=== PATIENT | female | born 1985 | race Caucasian/White ===

== ENCOUNTER 2017-12-09 18:09 | Emergency (ER) | END 2017-12-09 20:47 | disposition home or self-care (01) ==

== ENCOUNTER → 2018-01-25 | Outpatient (CLI) | payer OTHER ==
[~2018-01-25] MED LIST: ALBU90OI INH; ALBU90OI6 INH; AMOCLA500 PO; AMOCLA875 PO; AMOX500 PO; Augmentin 875-1 EACH PO; BCP'S; CEFD300 PO; CETI10 PO; CIPR250 PO; CIPR500 PO; CLIN300 PO; CRUTCH4 USE; CYCL10 PO; DIPH50; DOXY100 PO; GABA600 PO; HYDACE10B PO; HYDACE5 PO; HYDGUAL120 PO; HYDHOMSY PO; HYDR1TAB94 PO; IBUP200; IBUP600 PO; IBUP800 PO; IPRA.06NI; LEVFLO500 PO; METPRE4DP PO; METR500 PO; MONT10T PO; MULVITMINE; MULVITMINE PO; Mucinex600 MG PO; NAPR500; NAPR500 PO; NAPR550 PO; NITR100CA PO; ONDA4ODT MM; OXYACE5T PO; PANT20 PO; PHENA100 PO; PHENA200 PO; POTCHL20ER PO; PREN-16 PO; PROACE100 PO; PRODEXEL PO; PROM25 PO; PROM25S PR; PROM6.25SY PO; PSEU120ER PO; Prednisone20 MG PO; RXHYDACE PO; RXNAPNA550 PO; RXOXYACE PO; RXPHEN200 PO; RXPROACE PO; RXSULTRIDS PO; SEASONIQUE; SULTRIDS PO; TRAM50 PO; Ultram50 MG PO; VALA500 PO; Zithromax250 MG PO; Zofran Odt4 MG PO; [UNRECOGNIZED DRUG - OTHER]
== END ==
LOC: LAB EV 12:03 → LAB SHORT 12:03
DX: N39.0 Urinary tract infection, site not specified (principal)
CPT/HCPCS: 87077; 87086; 87186

== ENCOUNTER → 2018-05-28 | Outpatient (CLI) | payer OTHER ==
[2018-05-29 14:10] LABS: HPV 16 Negative (Negative); HPV 18 Negative (Negative); HPV OTHER HR TYPES Positive (Negative)
== END ==
LOC: LAB 09:30 → LAB SHORT 09:30
PROVIDERS: Registered Nurse Community Health
DX: Z12.4 Encounter for screening for malignant neoplasm of cervix (principal)
CPT/HCPCS: 87624; G0123

== ENCOUNTER → 2019-06-07 | Outpatient (CLI) | payer OTHER ==
[2019-06-07 14:59] LABS: BASOPHILS ABSOLUTE AUTO 0.02 K/mm3 (0.00-0.23); BASOPHILS PERCENT AUTO 0 % (0-2); EOSINOPHILS ABSOLUTE AUTO 0.12 K/mm3 (0.00-0.68); EOSINOPHILS PERCENT AUTO 2 % (0-6); Hematocrit 42.9 % (33.0-51.0); Hemoglobin 13.7 g/dL (11.5-16.0); IMMATURE GRAN ABSOLUTE AUTO 0.02 K/mm3 (0.00-0.10); IMMATURE GRAN PERCENT AUTO 0 % (0-1); LYMPHOCYTES ABSOLUTE AUTO 1.92 K/mm3 (0.84-5.20); LYMPHOCYTES PERCENT AUTO 28 % (21-46); MONOCYTES ABSOLUTE AUTO 0.51 K/mm3 (0.16-1.47); MONOCYTES PERCENT AUTO 7 % (4-13); Mean Corpuscular HGB 28.3 pg (26.0-34.0); Mean Corpuscular HGB Conc 31.9 g/dL (31.5-36.5); Mean Corpuscular Volume 89 fL (80-100); NEUTROPHILS ABSOLUTE AUTO 4.36 K/mm3 (1.96-9.15); NEUTROPHILS PERCENT AUTO 63 % (41-73); Platelet Count 361 K/mm3 (150-400); RDW Standard Deviation 41.8 fL (35.1-46.3); Red Blood Cell Count 4.84 M/mm3 (3.80-5.20); White Blood Cell Count 6.95 K/mm3 (4.00-11.30)
[2019-06-07 15:08] LABS: Alanine Aminotransfer (ALT/SGP 26 U/L (12-78); Albumin, Blood 3.4 g/dL (3.4-5.0); Albumin/Globulin Ratio 0.8 (0.8-1.8); Alk Phos 109 U/L (40-126); Anion Gap 12 mmol/L (6-16); Aspartate Aminotrans (AST/SGOT 15 U/L (12-37); Bilirubin, Total 0.5 mg/dL (0.1-1.0); Blood Urea Nitrogen 13 mg/dL (8-24); CO2, Blood 22 mmol/L (21-32); Calcium, Blood 8.7 mg/dL (8.5-10.1); Chloride, Blood 107 mmol/L (98-108); Globulin, Blood 4.2 g/dL (2.2-4.0); Glomerular Filtration Rate >60 (60-); Glucose, Blood 88 mg/dL (70-99); Potassium, Blood 3.7 mmol/L (3.5-5.5); Sodium, Blood 141 mmol/L (136-145); Total Protein, Blood 7.6 g/dL (6.4-8.2)
== END | disposition home or self-care (01) ==
LOC: LAB EV 14:54 → LAB SHORT 14:54
PROVIDERS: Physician Assistant
DX: R10.13 Epigastric pain (principal); R10.32 Left lower quadrant pain
CPT/HCPCS: 80053; 83690; 85025

== ENCOUNTER → 2019-08-15 | Outpatient (CLI) | payer OTHER ==
[2019-08-19 14:07] LABS: HPV 16 Negative (Negative); HPV 18 Negative (Negative); HPV OTHER HR TYPES Positive (Negative)
== END ==
LOC: LAB 13:30 → LAB SHORT 13:30
PROVIDERS: Registered Nurse Community Health
DX: Z12.4 Encounter for screening for malignant neoplasm of cervix (principal)
CPT/HCPCS: 87624; 87625; G0123

== ENCOUNTER 2019-09-23 20:17 | Emergency (ER) | payer OTHER ==
[~2019-09-23] VITALS: Ht 180.3 cm; Wt 156.0 kg
[2019-09-23] MEDS ORDERED: BACL10 PO (21:07)
[2019-09-23] MEDS ORDERED: MONT4 PO (21:08)
[2019-09-23] MEDS ORDERED: Indocin50 MG (21:08)
[2019-09-23] MEDS ORDERED: PRILOSEC OTC20 MG PO (21:08)
[2019-09-23] MEDS ORDERED: MONTELUKAST SOD10 MG PO (21:09)
== END 2019-09-23 21:46 | disposition home or self-care (01) ==
LOC: ER 20:17
DX: G62.9 Polyneuropathy, unspecified (principal); M54.12 Radiculopathy, cervical region; Z88.2 Allergy status to sulfonamides; Z88.1 Allergy status to other antibiotic agents; Z88.5 Allergy status to narcotic agent; Z79.899 Other long term (current) drug therapy; Z87.891 Personal history of nicotine dependence
CPT/HCPCS: 99283

== ENCOUNTER → 2021-08-10 | Outpatient (CLI) | payer OTHER ==
[~2021-08-10] MED LIST changes: +BACL10 PO; +Depo-Prove150 MG/11 IM; +HYDCHL25 PO; +Indocin50 MG; +MONT4 PO; +MONTELUKAST SOD10 MG PO; +PRILOSEC OTC20 MG PO; +QUET200 PO
== END | disposition home or self-care (01) ==
LOC: LAB 19:06 → LAB SHORT 19:06
DX: R30.9 Painful micturition, unspecified (principal)
CPT/HCPCS: 87086

== ENCOUNTER → 2022-01-07 | Outpatient (CLI) | payer OTHER ==
[2022-01-07 14:42] LABS: Anion Gap 3 mmol/L (6-16); Blood Urea Nitrogen 12 mg/dL (8-24); CO2, Blood 25 mmol/L (21-32); Calcium, Blood 8.7 mg/dL (8.5-10.1); Chloride, Blood 111 mmol/L (98-108); Creatinine, Blood 0.86 mg/dL (0.40-1.00); Glomerular Filtration Rate >60 (60-); Glucose, Blood 109 mg/dL (70-99); Potassium, Blood 3.6 mmol/L (3.5-5.5); Sodium, Blood 139 mmol/L (136-145)
== END ==
LOC: LAB SHORT 12:17 → LAB FUT 03-18 10:20
PROVIDERS: Otolaryngology
DX: C73 Malignant neoplasm of thyroid gland (principal); R30.9 Painful micturition, unspecified
CPT/HCPCS: 36415; 80048

== ENCOUNTER → 2022-04-06 | Outpatient (CLI) | payer OTHER | END | disposition home or self-care (01) | LOC: LAB SHORT 07:30 | PROVIDERS: Nurse Practitioner Family | DX: D09.3 Carcinoma in situ of thyroid and other endocrine glands (principal); E89.0 Postprocedural hypothyroidism; H53.2 Diplopia | CPT/HCPCS: 81050 ==

== ENCOUNTER → 2022-04-11 | Outpatient (CLI) | payer OTHER ==
[2022-04-13 08:09] LABS: HPV 16 Negative (Negative); HPV 18 Negative (Negative); HPV OTHER HR TYPES Negative (Negative)
== END ==
LOC: LAB 14:55 → LAB SHORT 14:55
PROVIDERS: Registered Nurse Community Health
DX: Z12.4 Encounter for screening for malignant neoplasm of cervix (principal)
CPT/HCPCS: 87624; G0123

== ENCOUNTER → 2022-04-20 | Outpatient (CLI) | payer OTHER | LOC: LAB SHORT 14:28 → PLD 14:28 | DX: L30.9 Dermatitis, unspecified (principal) | CPT/HCPCS: 88312 ==

== ENCOUNTER → 2022-11-28 | Outpatient (CLI) | payer OTHER | END | disposition home or self-care (01) | LOC: LAB SHORT 08:46 → LAB 08:46 | DX: L03.116 Cellulitis of left lower limb (principal) | CPT/HCPCS: 87070; 87075; 87205 ==

== ENCOUNTER → 2024-09-08 | Outpatient (CLI) | payer OTHER | END | disposition home or self-care (01) | LOC: LAB 09:40 → LAB SHORT 09:40 | DX: N12 Tubulo-interstitial nephritis, not specified as acute or chronic (principal) | CPT/HCPCS: 87077; 87086; 87186 ==

== ENCOUNTER → 2025-01-04 | Outpatient (CLI) | payer OTHER | LOC: LAB SHORT 13:30 → LAB 13:30 | DX: N39.0 Urinary tract infection, site not specified (principal) | CPT/HCPCS: 87077; 87086; 87186 ==

== ENCOUNTER → 2025-08-09 | Outpatient (CLI) | payer OTHER | LOC: LAB 17:12 → LAB SHORT 17:12 | DX: N34.3 Urethral syndrome, unspecified (principal) | CPT/HCPCS: 87086 ==